=== PATIENT | male | born 1930 | race Two or more races ===

== ENCOUNTER 2018-05-17 14:36 | Inpatient (IN) | payer MEDICARE, MEDICAID ==
[~2018-05-17] VITALS: Ht 175.3 cm; Wt 78.0 kg
[~2018-05-17 14:36] MED LIST: ATOR40TA PO; BENA40TA8 PO; CHOL20004 PO; CLOP75TA33 PO; FURO40TA5 PO; GLIM4TAB3 PO; LORA1TAB PO; MECL-102 PO; METO25TA6 PO; TAMS0.4C34 PO
--- NOTE | 2018-05-17 16:00 | NUR ---
Admitted from [facility] per [facility] accompanied by ambulance staff. With pain upon movement over left hip. Not in any form of distress. Sating well on room air, no SOB or chest pains noted. No S/S of hypoglycemia. Informed Dr. Galloway of admission. Oriented to unit and equipment. Routine admission care done.
[2018-05-17] MEDS ORDERED: Z GUARD REMEDY PASTE 57 GM TUBE TOP PRN (18:00)
[2018-05-17] MEDS ORDERED: HYDR-4077 PO (18:13)
[2018-05-17] MEDS ORDERED: GLIM2TAB2 PO (18:13)
[2018-05-17] MEDS ORDERED: TRAV5DRO EACHEYE (18:13)
[2018-05-17] MEDS ORDERED: PANT40TA2 PO (18:13)
[2018-05-17] MEDS ORDERED: ACET-2154 PO (18:13)
[2018-05-17] MEDS ORDERED: CHOL100043 PO (18:13)
[2018-05-17] MEDS ORDERED: CLOP75TA33 PO (18:13)
[2018-05-17] MEDS ORDERED: METF-440 PO ×2 (18:13→20:19)
[2018-05-17] MEDS ORDERED: ENOX40DI SQ (18:13)
[2018-05-17] MEDS ORDERED: [UNRECOGNIZED DRUG - CODE] OP (18:13)
[2018-05-17] MEDS ORDERED: HYDR-3326 PO (18:13)
[2018-05-17] MEDS ORDERED: MAG355OR18 PO (18:14)
[2018-05-17] MEDS ORDERED: INSULIN REGULAR, HUMAN 300 UNIT/3 ML VIAL SQ PRN (18:30)
[2018-05-17] MEDS ORDERED: DEXTROSE 50% 50 ML DISP.SYRIN IV PRN ×2 (18:30→18:45)
--- NOTE | 2018-05-17 18:47 | NUR ---
Dayana Khan informed of admission and requested medication reconciliation.
[2018-05-17] MEDS ORDERED: GLIMEPIRIDE 4 MG TABLET PO SCH (19:00)
--- NOTE | 2018-05-17 19:25 | NUR ---
SBAR RECEIVED FROM DAY SHIFT NURSE. PATIENT ALERT AND ORIENTED X 4. NO C/O OF PAIN UPON ASSESSMENT. PATIENT APPEARS TO BE ANXIOUS ABOUT BLOOD SUGAR LEVELS. PLACED ON 0.5 L OF O2. BS TAKEN AND FOUND TO >200. WILL GIVE INSULIN WHEN MEDICATION IS RECONCILED. CALL LIGHT AND FREQUENTLY USED ITEMS WITHIN REACH. WILL CONTINUE TO MONITOR.
[2018-05-17 19:55] VITALS: BP 113/42
[2018-05-17] MEDS ORDERED: BENA20TA9 PO (20:14)
[2018-05-17] MEDS ORDERED: FURO-151 PO (20:15)
[2018-05-17] MEDS ORDERED: METF500S7 PO (20:17)
[2018-05-17] MEDS: LATANOPROST OPHT DROP 2.5 ML BOTTLE EACHEYE SCH (20:35)
[2018-05-17] MEDS: ACETAMINOPHEN 325 MG TABLET PO PRN (20:35)
[2018-05-17] MEDS: TAMSULOSIN HCL 0.4 MG CAP.SR.24H PO SCH (20:35)
[2018-05-17] MEDS: ATORVASTATIN 40 MG TABLET PO SCH (20:35)
[2018-05-17] MEDS: SODIUM CHLORIDE 5% EACHEYE SCH ×2 (20:35→20:44)
[2018-05-17] MEDS: BLOOD SUGAR DIAGNOSTIC 1 EACH STRIP VI SCH (20:36)
[2018-05-17] MEDS: INSULIN REGULAR, HUMAN 300 UNIT/3 ML VIAL SQ PRN (20:42)
[2018-05-17] MEDS ORDERED: TRAVOPROST 0.004% OPHT DROP 2.5 ML BOTTLE EACHEYE SCH (21:00)
[2018-05-17] MEDS ORDERED: BLOOD SUGAR DIAGNOSTIC 1 EACH STRIP VI SCH (21:00)
[2018-05-17] MEDS: hydrALAZINE HCL 50 MG TABLET PO SCH (21:13)
[2018-05-18 05:13] VITALS: BP 106/43
[2018-05-18] MEDS: hydrALAZINE HCL 50 MG TABLET PO SCH ×3 (06:00→21:13)
[2018-05-18] MEDS: PANTOPRAZOLE SODIUM 40 MG TABLET.DR PO SCH (06:39)
[2018-05-18] MEDS: BLOOD SUGAR DIAGNOSTIC 1 EACH STRIP VI SCH ×4 (06:39→21:14)
--- NOTE | 2018-05-18 06:51 | NUR ---
PATIENT SLEPT WELL DURING SHIFT. ALL DUE MEDICATIONS GIVEN-TOLERATED WELL. CALL LIGHT UTILIZED FOR BATHROOM NEEDS. PATIENT BECOME EASILY AGITATED AND ASKS MANY QUESTIONS ABOUT HIS MEDICATION ORDERS. PATIENT SIDE RAILS UP BILATERALLY FOR SAFETY. CALL LIGHT AND FREQUENTLY USED ITEMS WITHIN REACH. WILL ENDORSE TO ONCOMING SHIFT ACCORDINGLY.
[2018-05-18 08:00] VITALS: BP 124/48
[2018-05-18] MEDS ORDERED: METFORMIN HCL 500 MG TABLET PO SCH (08:00)
[2018-05-18] MEDS ORDERED: CLOPIDOGREL 75 MG TABLET PO SCH (09:00)
[2018-05-18] MEDS ORDERED: CHOLECALCIFEROL 1,000 UNIT TABLET PO SCH (09:00)
[2018-05-18] MEDS ORDERED: FUROSEMIDE 40 MG TABLET PO SCH (09:00)
[2018-05-18] MEDS ORDERED: BENAZEPRIL HCL 20 MG TABLET PO SCH ×2 (09:00)
[2018-05-18] MEDS ORDERED: ENOXAPARIN SODIUM 40 MG/0.4 ML DISP.SYRIN SQ SCH (09:00)
[2018-05-18] MEDS: GLIMEPIRIDE 2 MG TABLET PO SCH ×2 (09:08→11:54)
[2018-05-18] MEDS: METFORMIN HCL 500 MG TABLET PO SCH ×2 (09:09→11:54)
[2018-05-18] MEDS: SODIUM CHLORIDE 5% EACHEYE SCH ×4 (09:10→21:12)
[2018-05-18] MEDS: FUROSEMIDE 40 MG TABLET PO SCH (09:12)
[2018-05-18] MEDS: CLOPIDOGREL 75 MG TABLET PO SCH (09:14)
[2018-05-18] MEDS: CHOLECALCIFEROL 1,000 UNIT TABLET PO SCH (09:15)
[2018-05-18] MEDS: INSULIN REGULAR, HUMAN 300 UNIT/3 ML VIAL SQ PRN ×4 (09:26→21:12)
[2018-05-18 16:00] VITALS: BP 117/43
[2018-05-18 20:08] VITALS: BP 127/46
--- NOTE | 2018-05-18 20:24 | NUR ---
REPORT RECEIVED FROM DAY SHIFT NURSE. PATIENT ALERT AND ORIENTED X 3-4. IRISH SPEAKING. ASSISTED WITH EVENING ADLS AND BLADDER RELIEF. C/O OF HEADACHE DUE TO WHAT PATIENT BELIEVED TO BE HIS "HIGH BLOOD SUGAR". BLOOD SUGAR TAKEN AND FOUND TO BE 153. NO C/O SOB UPON ASSESSMENT. CALL LIGHT AND FREQUENTLY USED ITEMS WITHIN REACH. WILL CONTINUE TO MONITOR.
[2018-05-18] MEDS: TAMSULOSIN HCL 0.4 MG CAP.SR.24H PO SCH (21:13)
[2018-05-18] MEDS: LATANOPROST OPHT DROP 2.5 ML BOTTLE EACHEYE SCH (21:13)
[2018-05-18] MEDS: BENAZEPRIL HCL 20 MG TABLET PO SCH (21:14)
[2018-05-18] MEDS: ATORVASTATIN 40 MG TABLET PO SCH (21:14)
[2018-05-19 05:12] VITALS: BP 139/46
[2018-05-19] MEDS: hydrALAZINE HCL 50 MG TABLET PO SCH ×3 (06:21→21:19)
[2018-05-19] MEDS: PANTOPRAZOLE SODIUM 40 MG TABLET.DR PO SCH (06:31)
[2018-05-19] MEDS: BLOOD SUGAR DIAGNOSTIC 1 EACH STRIP VI SCH ×4 (06:32→20:47)
--- NOTE | 2018-05-19 06:49 | NUR ---
PATIENT SLEPT WELL THROUGHOUT THE NIGHT. ALL DUE MEDICATIONS GIVEN-TOLERATED WELL. PATIENT REQUESTED URINAL SEVERAL TIMES DURING THE NIGHT. C/O WHEN MEDICATIONS ARE DUE. STATING THAT HE "DOESN'T TAKE THEM THIS EARLY AT HOME". INFORMED THAT THE DOCTOR PRESCRIBED HIM TO TAKE HIS MEDICATIONS AT A SPECIFIC TIME OR PURPOSE, BUT PATIENT STILL WOULD LIKE THE TIME TO BE CHANGED TO CLOSER TO WHEN HE USUALLY TAKES THEM AT HOME. CALL LIGHT AND FREQUENTLY USED ITEMS WITHIN REACH. WILL ENDORSE TO ONCOMING SHIFT ACCORDINGLY.
[2018-05-19 07:27] LABS: BASOPHILS % (AUTO) 0.3 % (0.0-2.0); EOSINOPHILS # (AUTO) 0.3 K/uL (0.0-0.7); EOSINOPHILS % (AUTO) 5.8 % (0.0-7.0); HEMATOCRIT 23.9 % (36.7-47.1); HEMOGLOBIN 8.3 g/dL (12.5-16.3); LYMPHOCYTES # (AUTO) 1.2 K/uL (20.0-40.0); LYMPHOCYTES % (AUTO) 22.3 % (20.5-51.5); MEAN CORPUSCULAR HEMOGLOBIN 33.2 uug (23.8-33.4); MEAN CORPUSCULAR HGB CONC 35 g/dL (32.5-36.3); MEAN CORPUSCULAR VOLUME 95.6 fL (73.0-96.2); MONOCYTES # (AUTO) 0.5 K/uL (2.0-10.0); MONOCYTES % (AUTO) 10.2 % (0.0-11.0); NEUTROPHILS # (AUTO) 3.3 K/uL (1.8-8.9); NEUTROPHILS % (AUTO) 61.4 % (38.5-71.5); PLATELET COUNT (AUTO) 148 K/uL (152-348); WHITE BLOOD COUNT (AUTO) 5.4 K/uL (3.6-10.2)
[2018-05-19 08:00] VITALS: BP 102/39
[2018-05-19 08:02] LABS: ALANINE AMINOTRANSFERASE 31 U/L (16-63); ALKALINE PHOSPHATASE 30 U/L (50-136); ASPARTATE AMINOTRANSFERASE 28 U/L (15-37); BILIRUBIN,TOTAL 1.2 mg/dL (0.2-1.0); CARBON DIOXIDE 32 mmol/L (21-32); CHLORIDE 103 mmol/L (98-107); CHOLESTEROL 89 mg/dL (<200); CREATININE 1.1 mg/dL (0.6-1.3); GLUCOSE 89 mg/dL (74-106); HDL CHOLESTEROL 37 mg/dL (40-60); MAGNESIUM 1.7 mg/dL (1.8-2.4); POTASSIUM 3.2 mmol/L (3.5-5.1); TOTAL PROTEIN, SERUM 6.1 g/dL (6.4-8.2); TRIGLYCERIDES 80 MG/DL (30-150); UREA NITROGEN, BLOOD 21 mg/dL (7-18)
[2018-05-19] MEDS: METFORMIN HCL 500 MG TABLET PO SCH ×2 (08:43→11:53)
[2018-05-19] MEDS: FUROSEMIDE 40 MG TABLET PO SCH (08:43)
[2018-05-19] MEDS: CHOLECALCIFEROL 1,000 UNIT TABLET PO SCH (08:43)
[2018-05-19] MEDS: CLOPIDOGREL 75 MG TABLET PO SCH (08:44)
[2018-05-19] MEDS: GLIMEPIRIDE 2 MG TABLET PO SCH ×2 (08:44→11:53)
[2018-05-19] MEDS: BENAZEPRIL HCL 20 MG TABLET PO SCH ×2 (08:46→20:45)
[2018-05-19] MEDS: SODIUM CHLORIDE 5% EACHEYE SCH ×4 (08:47→20:44)
[2018-05-19] MEDS: INSULIN REGULAR, HUMAN 300 UNIT/3 ML VIAL SQ PRN ×3 (08:56→16:22)
[2018-05-19] MEDS ORDERED: ENOXAPARIN SODIUM 40 MG/0.4 ML DISP.SYRIN SQ SCH ×2 (09:00)
[2018-05-19] MEDS: TRAMADOL HCL 50 MG TABLET PO PRN ×2 (09:20→16:49)
--- NOTE | 2018-05-19 09:44 | NUR ---
Received pt. on bed, comfortable in no distress. A/OX3 and able to make his needs known. Denies CP or SOB, on 2LPM via NC tolerating well with 97% SpO2. All due medications administered as ordered and tolerated well. lt. hip covered C/D/I dressing. No s/sx of hypo/hyperglycemia. Lovenox dose noted with discrepancy, pharmacy to clarify with MD. All pt. needs attended and met promptly. Safety measures in place. Call light and all frequently used items within pt. reach.
[2018-05-19] MEDS: ENOXAPARIN SODIUM 40 MG/0.4 ML DISP.SYRIN SQ SCH (10:49)
[2018-05-19] MEDS ORDERED: POTASSIUM CHLORIDE 20 MEQ TAB.PRT.SR PO ONE (12:00)
[2018-05-19] MEDS ORDERED: MAGNESIUM OXIDE 400 MG TABLET PO ONE (12:00)
[2018-05-19] MEDS: MECLIZINE HCL 25 MG TABLET PO PRN (12:04)
[2018-05-19 12:27] LABS: IRON, SERUM 22 ug/dL (50-175)
[2018-05-19 16:24] VITALS: BP 101/43
--- NOTE | 2018-05-19 19:34 | NUR ---
End of shift note: All due medications administered as ordered and tolerated well. No sign of acute distress or SOB was noted. Kept pt clean and dry throughout this shift. Safety measures maintained. All needs attended and met promptly. Bed in low position, brake and alarm on, side rails up x2 as an enabler. Call light and all frequently used items within pt. reach. Will endorse to next shift accordingly.
--- NOTE | 2018-05-19 19:45 | NUR ---
PATIENT ALERT AND ORIENTED X 4. NO C/O OF PAIN UPON ASSESSMENT. SPOKE TO SON ON THE PHONE ABOUT PATIENTS PHYSICAL THERAPY ACTIVITY. SON IS INSISTENT THAT PATENT ALWAYS BE GIVEN PAIN MEDICATION EXACTLY 1 HOUR PRIOR TO BEFORE PATIENT HAS PHYSICAL THERAPY. EVENING REQUIRED NO COVERAGE AND BP MEDS WILL BE HELD FOR LOW BLOOD PRESSURE. CALL LIGHT AND FREQUENTLY USED ITEMS WITHIN REACH. WILL CONTINUE TO MONITOR.
[2018-05-19] MEDS: LATANOPROST OPHT DROP 2.5 ML BOTTLE EACHEYE SCH (20:44)
[2018-05-19] MEDS: TAMSULOSIN HCL 0.4 MG CAP.SR.24H PO SCH (20:45)
[2018-05-19] MEDS: ATORVASTATIN 10 MG TABLET PO SCH (20:45)
[2018-05-19 20:52] VITALS: BP 102/42
[2018-05-20] MEDS: hydrALAZINE HCL 50 MG TABLET PO SCH ×3 (05:45→21:34)
[2018-05-20 06:09] VITALS: BP 104/46
[2018-05-20] MEDS: BLOOD SUGAR DIAGNOSTIC 1 EACH STRIP VI SCH ×4 (06:36→20:41)
[2018-05-20] MEDS: PANTOPRAZOLE SODIUM 40 MG TABLET.DR PO SCH (06:36)
--- NOTE | 2018-05-20 07:03 | NUR ---
PATIENT SLEPT ON AND OFF DURING THE NIGHT. ALL DUE MEDICATIONS GIVEN-TOLERATED WELL. 0600 HYDRALAZINE HELD DUE TO LOW BLOOD PRESSURE. MORNING BLOOD SUGAR TAKEN X3 DUE TO LOW BS. FIRST CHECK WAS 50, SECOND WAS 59, THIRD WAS 74. CRACKERS AND JUICE GIVEN TO RAISE BLOOD SUGAR. CALL LIGHT AND FREQUENTLY USED ITEMS WITHIN REACH. WILL ENDORSE TO ONCOMING SHIFT ACCORDINGLY.
--- NOTE | 2018-05-20 08:00 | NUR ---
Received patient awake, alert x3. Not in any form of distress. No chest pains or SOB noted, no S/S of hypoglycemia. With original surgical dressing in place dry and intact over left hip. Abduction pillow inplace. With tolerable pain over left hip, only with pain upon movement.
[2018-05-20 08:20] VITALS: BP 97/45
[2018-05-20] MEDS: CHOLECALCIFEROL 1,000 UNIT TABLET PO SCH (08:22)
[2018-05-20] MEDS: GLIMEPIRIDE 2 MG TABLET PO SCH ×2 (08:22→12:11)
[2018-05-20] MEDS: CLOPIDOGREL 75 MG TABLET PO SCH (08:22)
[2018-05-20] MEDS: METFORMIN HCL 500 MG TABLET PO SCH ×2 (08:24→12:11)
[2018-05-20] MEDS: TRAMADOL HCL 50 MG TABLET PO PRN (08:24)
[2018-05-20] MEDS: ENOXAPARIN SODIUM 40 MG/0.4 ML DISP.SYRIN SQ SCH (08:27)
[2018-05-20] MEDS: SODIUM CHLORIDE 5% EACHEYE SCH ×4 (08:28→20:38)
[2018-05-20] MEDS: BENAZEPRIL HCL 20 MG TABLET PO SCH ×2 (08:35→20:38)
[2018-05-20] MEDS: FUROSEMIDE 40 MG TABLET PO SCH (08:35)
--- NOTE | 2018-05-20 09:51 | NUR ---
Patient complained of dizziness upon standing up with therapy. Patient did not ambulate at this time. PRN Tramadol given before therapy.
[2018-05-20] MEDS: INSULIN REGULAR, HUMAN 300 UNIT/3 ML VIAL SQ PRN ×2 (12:10→20:47)
--- NOTE | 2018-05-20 12:14 | NUR ---
WOUND CARE CONSULT: PT PRESENTS WITH SURGICAL DRESSING TO LEFT HIP AND UNEVEN PIGMENTATION ON FACE, BACK AND BUTTOCKS, PRESENT ON ADMISSION. PT IS CONTINENT AT THIS TIME. RECOMMENDATIONS MADE FOR SKIN PROTECTION. DISCUSSED WITH NURSING STAFF. WILL SEE PRN. CURRENT NILE SCORE IS 18. MD IN AGREEMENT WITH PLAN OF CARE. Addendum: 05/20/18 at 1216 by VERONIKA CARBALLO RN Amended: Links added.
[2018-05-20 13:10] VITALS: BP_SYST 127; BP_SYST 98; BP_DIAS 44; BP_DIAS 51
[2018-05-20 13:34] VITALS: BP_SYST 101; BP_SYST 125; BP_SYST 89; BP_DIAS 51; BP_DIAS 57; BP_DIAS 60
[2018-05-20] MEDS: ACETAMINOPHEN 325 MG TABLET PO PRN ×2 (15:03→21:35)
--- NOTE | 2018-05-20 16:14 | NUR ---
INDIVIDUALIZED OVERALL PLAN OF CARE
[2018-05-20 16:22] VITALS: BP 94/41
--- NOTE | 2018-05-20 16:41 | NUR ---
Informed Dr Higgins of orthostatics taken and patient being dizzy during therapy, ordered NS at 80 cc/hr for 24 hrs
--- NOTE | 2018-05-20 17:00 | NUR ---
Blood sugar of 57, patient asymptomatic alert, awake not in any form of distress. Offered orange juice but refused. Offered chocolate pudding and crackers instead.
[2018-05-20] MEDS: IV NS 1000 ML 1,000 ML IV SCH (18:14)
--- NOTE | 2018-05-20 18:30 | NUR ---
Blood sugar re-checked still at 56. Dextrose 50%50% given PRN. Patient asymptomatic, alert, awake x3 not in any form of distress.
--- NOTE | 2018-05-20 19:40 | NUR ---
Patient received in bed while yelling and screaming and asking for insulin. Very angry and verbally aggressive toward nurses. tried to educate him about BS and insulin, but not listening. BS checked 135. Convinced him that his BS will be checked again and will be covered with insulin based on sliding scale. No acute distress or SOB was noted. On room air. On IV fluid NS 80 ml/hr. IV access on the left FA, G 22, patent, no sign of inflammation. No complain of pain at this time. Patient assessed. Safety measures maintained, Fall precaution observed, Bed in low position, brake and alarm on, side rails up x2 for safety. Call light and personal belongings within reach. Continue to monitor.
[2018-05-20] MEDS: LATANOPROST OPHT DROP 2.5 ML BOTTLE EACHEYE SCH (20:36)
[2018-05-20] MEDS: ATORVASTATIN 10 MG TABLET PO SCH (20:38)
[2018-05-20] MEDS: TAMSULOSIN HCL 0.4 MG CAP.SR.24H PO SCH (20:38)
[2018-05-20 20:42] VITALS: BP 135/65
--- NOTE | 2018-05-20 22:10 | NUR ---
Hydralazine 50 mg tab was held because of low BP: 101/51, HR: 63. Continue to monitor.
[2018-05-21] MEDS: hydrALAZINE HCL 50 MG TABLET PO SCH ×3 (05:07→22:00)
[2018-05-21 05:10] VITALS: BP 104/40
--- NOTE | 2018-05-21 05:12 | NUR ---
Hydralazine 50 mg tab was held because of low BP: 104/40, HR: 62. Continue to monitor.
[2018-05-21] MEDS: IV NS 1000 ML 1,000 ML IV SCH ×2 (05:26→17:28)
[2018-05-21] MEDS: MAGNESIUM HYDROXIDE 30 ML LIQUID UDC PO PRN ×2 (05:31→16:17)
[2018-05-21] MEDS: PANTOPRAZOLE SODIUM 40 MG TABLET.DR PO SCH (06:30)
[2018-05-21] MEDS: BLOOD SUGAR DIAGNOSTIC 1 EACH STRIP VI SCH ×4 (06:50→21:01)
--- NOTE | 2018-05-21 06:55 | NUR ---
Patient BS was 65 @0630, but patient refused to have apple juice or something sweet. Stated, "It' s normal to me". education provided, still refused. Mentioned, "I am diabetic for 35 years, don't worry about me, sugar makes me blind". Educated him about the risks of hypoglycemia. Still refused to have something sweet. Continue to monitor and will endorse to the day shift nurse accordingly.
[2018-05-21 08:00] VITALS: BP 101/48
[2018-05-21] MEDS: CHOLECALCIFEROL 1,000 UNIT TABLET PO SCH (08:59)
[2018-05-21] MEDS: CLOPIDOGREL 75 MG TABLET PO SCH (08:59)
[2018-05-21] MEDS: METFORMIN HCL 500 MG TABLET PO SCH ×2 (08:59→11:45)
[2018-05-21] MEDS: FUROSEMIDE 40 MG TABLET PO SCH (08:59)
[2018-05-21] MEDS: SODIUM CHLORIDE 5% EACHEYE SCH ×4 (09:00→21:03)
[2018-05-21] MEDS: GLIMEPIRIDE 2 MG TABLET PO SCH ×2 (09:00→11:45)
[2018-05-21] MEDS: BENAZEPRIL HCL 20 MG TABLET PO SCH ×2 (09:00→21:00)
[2018-05-21] MEDS: ENOXAPARIN SODIUM 40 MG/0.4 ML DISP.SYRIN SQ SCH (09:03)
[2018-05-21] MEDS: TRAMADOL HCL 50 MG TABLET PO PRN ×2 (09:12→16:17)
--- NOTE | 2018-05-21 09:34 | NUR ---
Received pt. on bed, comfortable in no distress. A/OX3 and able to make his needs known. Denies CP or SOB, on 2LPM via NC tolerating well with 99% SpO2. All due medications administered as ordered and tolerated well. BP meds held for decreased BP (101/48). On IV fluids 0.9% NS for low bp @ 80ML/HR with no s/sx of fluid overload. No s/sx of hypo/hyperglycemia. LT. hip dressing C/D/I. All pt. needs attended and met promptly. Safety measures in place. Call light and all frequently used items within pt. reach.
[2018-05-21] MEDS: INSULIN REGULAR, HUMAN 300 UNIT/3 ML VIAL SQ PRN ×2 (11:44→16:18)
[2018-05-21 16:00] VITALS: BP 117/44
--- NOTE | 2018-05-21 18:34 | NUR ---
End of shift note: No significant change during this shift. All due medications administered as ordered and tolerated well. No sign of acute distress or SOB was noted. LFA PIV patent and intact, no s/sx of iv complication noted. Kept pt clean and dry throughout this shift. Safety measures maintained. All needs attended and met promptly. Bed in low position, brake on, side rails up x2 as an enabler. Call light and all frequently used items within pt. reach. Will endorse to next shift accordingly
[2018-05-21 20:59] VITALS: BP 114/44
[2018-05-21] MEDS: LATANOPROST OPHT DROP 2.5 ML BOTTLE EACHEYE SCH (21:04)
[2018-05-21] MEDS: TAMSULOSIN HCL 0.4 MG CAP.SR.24H PO SCH (21:05)
[2018-05-21] MEDS: ATORVASTATIN 10 MG TABLET PO SCH (21:05)
--- NOTE | 2018-05-21 21:50 | NUR ---
Received pt in bed. AAO x3. No acute distress noted. No c/o pain or discomfort. Pt requested for blood sugar to be checked early. Refused Lotensin for BP 114/44. Risks and benefits explained. Notified Dr. Garcia regarding fluctuation of blood sugar during rounds. Safety measures maintained. Call light and personal belongings within reach. Will continue to monitor.
--- NOTE | 2018-05-21 21:54 | NUR ---
Pt refused routine Apresoline for BP 123/47, HR 68. Pt stated that his BP tends to go down a lot. Risks and benefits explained, still refused. Will continue to monitor.
[2018-05-21 21:55] VITALS: BP 123/47
[2018-05-22 04:54] VITALS: BP 115/50
[2018-05-22] MEDS: hydrALAZINE HCL 50 MG TABLET PO SCH ×2 (06:00→14:00)
[2018-05-22] MEDS: PANTOPRAZOLE SODIUM 40 MG TABLET.DR PO SCH (06:44)
[2018-05-22] MEDS: BLOOD SUGAR DIAGNOSTIC 1 EACH STRIP VI SCH ×4 (06:49→20:37)
[2018-05-22 07:26] LABS: BASOPHILS % (AUTO) 0.4 % (0.0-2.0); EOSINOPHILS # (AUTO) 0.5 K/uL (0.0-0.7); HEMATOCRIT 22.2 % (36.7-47.1); HEMOGLOBIN 7.6 g/dL (12.5-16.3); LYMPHOCYTES # (AUTO) 1.2 K/uL (20.0-40.0); LYMPHOCYTES % (AUTO) 20.5 % (20.5-51.5); MEAN CORPUSCULAR HEMOGLOBIN 32.9 uug (23.8-33.4); MEAN CORPUSCULAR HGB CONC 34 g/dL (32.5-36.3); MEAN CORPUSCULAR VOLUME 96.2 fL (73.0-96.2); MONOCYTES # (AUTO) 0.6 K/uL (2.0-10.0); MONOCYTES % (AUTO) 9.8 % (0.0-11.0); NEUTROPHILS # (AUTO) 3.5 K/uL (1.8-8.9); NEUTROPHILS % (AUTO) 61.3 % (38.5-71.5); PLATELET COUNT (AUTO) 189 K/uL (152-348); WHITE BLOOD COUNT (AUTO) 5.7 K/uL (3.6-10.2)
[2018-05-22 07:31] LABS: RED BLOOD CELL COUNT(AUTO) 2.31 MIL/uL (4.06-5.63)
[2018-05-22 08:00] VITALS: BP 110/44
[2018-05-22 08:06] LABS: ALANINE AMINOTRANSFERASE 31 U/L (16-63); ALKALINE PHOSPHATASE 34 U/L (50-136); ASPARTATE AMINOTRANSFERASE 26 U/L (15-37); CARBON DIOXIDE 33 mmol/L (21-32); CHLORIDE 102 mmol/L (98-107); CHOLESTEROL 86 mg/dL (<200); CREATININE 1.1 mg/dL (0.6-1.3); GLUCOSE 99 mg/dL (74-106); HDL CHOLESTEROL 31 mg/dL (40-60); PHOSPHOROUS 2.8 mg/dL (2.5-4.9); POTASSIUM 3.7 mmol/L (3.5-5.1); TRIGLYCERIDES 72 MG/DL (30-150); UREA NITROGEN, BLOOD 20 mg/dL (7-18); URIC ACID 5.7 mg/dL (3.5-7.2)
[2018-05-22] MEDS: METFORMIN HCL 500 MG TABLET PO SCH ×2 (08:26→13:17)
[2018-05-22] MEDS: CHOLECALCIFEROL 1,000 UNIT TABLET PO SCH (08:26)
[2018-05-22] MEDS: FUROSEMIDE 40 MG TABLET PO SCH (08:26)
[2018-05-22] MEDS: GLIMEPIRIDE 2 MG TABLET PO SCH ×2 (08:26→13:17)
[2018-05-22] MEDS: CLOPIDOGREL 75 MG TABLET PO SCH (08:27)
[2018-05-22] MEDS: SODIUM CHLORIDE 5% EACHEYE SCH ×4 (08:27→20:31)
[2018-05-22] MEDS: ENOXAPARIN SODIUM 40 MG/0.4 ML DISP.SYRIN SQ SCH (08:31)
[2018-05-22] MEDS: BENAZEPRIL HCL 20 MG TABLET PO SCH (09:00)
[2018-05-22] MEDS: TRAMADOL HCL 50 MG TABLET PO PRN (09:05)
[2018-05-22 09:35] LABS: THYROID STIMULATING HORMONE 1.802 mIU/mL (0.358-3.740)
[2018-05-22] MEDS: INSULIN REGULAR, HUMAN 300 UNIT/3 ML VIAL SQ PRN ×2 (11:56→17:02)
[2018-05-22 16:00] VITALS: BP 129/45
--- NOTE | 2018-05-22 16:14 | NUR ---
SS assessment completed; see Social Service Assessment intervention for assessment details.
[2018-05-22] MEDS ORDERED: hydrALAZINE HCL 25 MG TABLET PO PRN (18:15)
--- NOTE | 2018-05-22 18:15 | NUR ---
Notified Dr. Garcia regarding patient's low diastolic BP and an episode of decreased BP 84/43 when stood up with PT then BP went up to 110/44 when she was back in bed. Also informed MD that BP medications due were held today because of low BP. Per MD he will put in orders
--- NOTE | 2018-05-22 19:15 | NUR ---
Awake during initial rounds. Denies pain/discomforts at this time. Kept needed items within easy reach. Safety measures maintained. Continue care as planned.
--- NOTE | 2018-05-22 19:36 | NUR ---
Received an order from Dr. Garcia to transfuse 1 unit PRBC. Order carried out. Endorsed accordingly to mold shifter nurse for continuity of care.
[2018-05-22 20:23] VITALS: BP 115/58
--- NOTE | 2018-05-22 20:28 | NUR ---
Patient refused lab draw and blood transfusion for tonight. Patient states " that can wait till tomorrow." Will endorse to Am nurse.
[2018-05-22] MEDS: TAMSULOSIN HCL 0.4 MG CAP.SR.24H PO SCH (20:31)
[2018-05-22] MEDS: LATANOPROST OPHT DROP 2.5 ML BOTTLE EACHEYE SCH (20:31)
[2018-05-22] MEDS: ATORVASTATIN 10 MG TABLET PO SCH (20:31)
--- NOTE | 2018-05-22 20:37 | NUR ---
BS 63 mg/dl. [place] juice was given and beg not to repeat the blood sugar check despite explaining the risk and benefits. Will monitor s/s of hypoglycemia.
--- NOTE | 2018-05-22 20:44 | NUR ---
HS snack provided.
--- NOTE | 2018-05-22 20:51 | NUR ---
Dr Garcia made aware about patient refusal fo blood draw for type n cross and blood transfusion for tonight stating "these can wait till tomorrow." Same thing with the low BS 63mg/dl. . Denies any s/s of hypoglycemia.
--- NOTE | 2018-05-22 21:17 | NUR ---
Urine specimen collected for UA and c/s and sent to lab.
[2018-05-22 21:39] LABS: *BILIRUBIN,URIN NEGATIVE (NEGATIVE); *CLARITY,URINE CLEAR (CLEAR); *COLOR,URINE YELLOW (YELLOW); *KETONES,URINE NEGATIVE (NEGATIVE); *UROBILINOGEN,URINE 0.2 E.U./dl (NORMAL); LEUKOCYTE ESTERASE ,URINE NEGATIVE (NEGATIVE); NITRITE, URINE NEGATIVE (NEGATIVE); PH,URINE 5.5 (5.0-8.0); UGLUCOSE NEGATIVE (NEGATIVE)
[2018-05-22 21:40] LABS: *BLOOD, URINE TRACE (NEGATIVE)
[2018-05-22 21:41] LABS: BACTERIA,URINE NONE SEEN /HPF (NONE SEEN); RBC,URINE 0-3 /HPF (0-3); SQUAMOUS EPITHELIAL CELL,UR FEW /HPF (NONE SEEN); WBC,URINE 0-3 /HPF (0-3)
[2018-05-23] VITALS (11 sets, daily range): BP systolic 102–138; BP diastolic 42–84
[2018-05-23] MEDS: PANTOPRAZOLE SODIUM 40 MG TABLET.DR PO SCH (06:49)
[2018-05-23] MEDS: BLOOD SUGAR DIAGNOSTIC 1 EACH STRIP VI SCH ×4 (06:50→20:18)
--- NOTE | 2018-05-23 06:57 | NUR ---
BS 69 mg/dl. Denies s/s of hypoglycemia, start eating chocolate at bedside, refused apple juice offered. Will monitor and endorse to oncoming shift.
[2018-05-23] MEDS: GLIMEPIRIDE 2 MG TABLET PO SCH ×2 (08:11→12:09)
[2018-05-23] MEDS: METFORMIN HCL 500 MG TABLET PO SCH ×2 (08:11→12:09)
[2018-05-23] MEDS: ENOXAPARIN SODIUM 40 MG/0.4 ML DISP.SYRIN SQ SCH (09:03)
[2018-05-23] MEDS: SODIUM CHLORIDE 5% EACHEYE SCH ×4 (09:08→20:14)
[2018-05-23] MEDS: CHOLECALCIFEROL 1,000 UNIT TABLET PO SCH (09:09)
[2018-05-23] MEDS: FUROSEMIDE 40 MG TABLET PO SCH (09:09)
[2018-05-23] MEDS: CLOPIDOGREL 75 MG TABLET PO SCH (09:09)
--- NOTE | 2018-05-23 09:45 | NUR ---
Patient signed consent for blood transfusion.
--- NOTE | 2018-05-23 10:04 | NUR ---
Blood transfusion started. Patient denies any pain or discomfort at this time. He remains alert, not in any form of acute distress. VS stable.
[2018-05-23] MEDS: INSULIN REGULAR, HUMAN 300 UNIT/3 ML VIAL SQ PRN (11:43)
--- NOTE | 2018-05-23 13:10 | NUR ---
Blood transfusion ended. Patient remains alert, oriented x 4, not in any form of distress. No noted signs or symptoms of blood transfusion reaction. Patient denies any discomfort. Vital signs remain stable. Assisted with his needs. Call light placed within reach.
--- NOTE | 2018-05-23 19:15 | NUR ---
Sleeping during initial rounds. Not in respiratory distress. HL on right wrist intact, no swelling/redness/infiltration noted. Safety measure and fall precaution maintained. Continue care as planned.
[2018-05-23] MEDS: ATORVASTATIN 10 MG TABLET PO SCH (20:14)
[2018-05-23] MEDS: TAMSULOSIN HCL 0.4 MG CAP.SR.24H PO SCH (20:14)
[2018-05-23] MEDS: LATANOPROST OPHT DROP 2.5 ML BOTTLE EACHEYE SCH (20:14)
[2018-05-24 06:10] VITALS: BP 124/58
[2018-05-24] MEDS: BLOOD SUGAR DIAGNOSTIC 1 EACH STRIP VI SCH ×4 (06:52→20:17)
[2018-05-24] MEDS: PANTOPRAZOLE SODIUM 40 MG TABLET.DR PO SCH (06:52)
[2018-05-24 07:23] LABS: ALANINE AMINOTRANSFERASE 31 U/L (16-63); ALKALINE PHOSPHATASE 39 U/L (50-136); ASPARTATE AMINOTRANSFERASE 29 U/L (15-37); BILIRUBIN,TOTAL 0.8 mg/dL (0.2-1.0); CARBON DIOXIDE 34 mmol/L (21-32); CHLORIDE 103 mmol/L (98-107); CREATININE 1.1 mg/dL (0.6-1.3); GLUCOSE 132 mg/dL (74-106); MAGNESIUM 1.9 mg/dL (1.8-2.4); PHOSPHOROUS 3.5 mg/dL (2.5-4.9); POTASSIUM 3.5 mmol/L (3.5-5.1); TOTAL PROTEIN, SERUM 6.5 g/dL (6.4-8.2); UREA NITROGEN, BLOOD 26 mg/dL (7-18)
[2018-05-24 07:30] LABS: BASOPHILS % (AUTO) 0.3 % (0.0-2.0); EOSINOPHILS # (AUTO) 0.7 K/uL (0.0-0.7); LYMPHOCYTES # (AUTO) 1.5 K/uL (20.0-40.0); MONOCYTES # (AUTO) 0.6 K/uL (2.0-10.0)
[2018-05-24 07:41] LABS: EOSINOPHILS % (AUTO) 11.1 % (0.0-7.0); LYMPHOCYTES % (AUTO) 24.6 % (20.5-51.5); MEAN CORPUSCULAR HEMOGLOBIN 32.2 uug (23.8-33.4); MEAN CORPUSCULAR HGB CONC 34 g/dL (32.5-36.3); MEAN CORPUSCULAR VOLUME 94.9 fL (73.0-96.2); MONOCYTES % (AUTO) 10.3 % (0.0-11.0); NEUTROPHILS # (AUTO) 3.3 K/uL (1.8-8.9); NEUTROPHILS % (AUTO) 53.7 % (38.5-71.5); WHITE BLOOD COUNT (AUTO) 6.2 K/uL (3.6-10.2)
[2018-05-24 07:43] LABS: HEMOGLOBIN 9.7 g/dL (12.5-16.3)
[2018-05-24 07:44] LABS: HEMATOCRIT 28.5 % (36.7-47.1); PLATELET COUNT (AUTO) 244 K/uL (152-348)
[2018-05-24] MEDS: GLIMEPIRIDE 2 MG TABLET PO SCH ×2 (08:07→11:56)
[2018-05-24 08:15] VITALS: BP 125/54
[2018-05-24] MEDS: CHOLECALCIFEROL 1,000 UNIT TABLET PO SCH (08:49)
[2018-05-24] MEDS: CLOPIDOGREL 75 MG TABLET PO SCH (08:50)
[2018-05-24] MEDS: TRAMADOL HCL 50 MG TABLET PO PRN (08:50)
[2018-05-24] MEDS: FUROSEMIDE 40 MG TABLET PO SCH (08:50)
[2018-05-24] MEDS: SODIUM CHLORIDE 5% EACHEYE SCH ×4 (08:51→20:18)
[2018-05-24] MEDS: ENOXAPARIN SODIUM 40 MG/0.4 ML DISP.SYRIN SQ SCH (08:56)
[2018-05-24] MEDS: METFORMIN HCL 500 MG TABLET PO SCH ×2 (11:56→16:53)
[2018-05-24] MEDS: INSULIN REGULAR, HUMAN 300 UNIT/3 ML VIAL SQ PRN ×3 (12:02→20:23)
--- NOTE | 2018-05-24 15:35 | NUR ---
INTERDISCIPLINARY TEAM CONFERENCE
[2018-05-24 16:48] LABS: *OCCULT BLOOD STOOL NEGATIVE (NEGATIVE)
[2018-05-24 17:50] VITALS: BP 135/51
--- NOTE | 2018-05-24 19:15 | NUR ---
Awake, watching TV at this time. Denies pain/discomforts. Safety measure and fall precaution maintained. Continue care as planned.
[2018-05-24] MEDS: TAMSULOSIN HCL 0.4 MG CAP.SR.24H PO SCH (20:18)
[2018-05-24] MEDS: LATANOPROST OPHT DROP 2.5 ML BOTTLE EACHEYE SCH (20:18)
[2018-05-24] MEDS: ATORVASTATIN 10 MG TABLET PO SCH (20:18)
[2018-05-24] MEDS: ACETAMINOPHEN 325 MG TABLET PO PRN (22:41)
--- NOTE | 2018-05-24 22:42 | NUR ---
Complaining of headache, Tylenol given as ordered and needed. Will monitor.
[2018-05-24 22:43] VITALS: BP 123/57
--- NOTE | 2018-05-25 01:03 | NUR ---
Still complaining of headache, unable to sleep, discomforts but denies pain. BP 130/60. BS checked 51mg/dl. Refused any medication like D50 and orange juice. Offered snacks but he prefers bertin crackers and apple sauce. Will continue to monitor.
[2018-05-25] MEDS: PANTOPRAZOLE SODIUM 40 MG TABLET.DR PO SCH (06:34)
[2018-05-25] MEDS: BLOOD SUGAR DIAGNOSTIC 1 EACH STRIP VI SCH ×4 (06:37→20:45)
[2018-05-25 07:08] VITALS: BP 130/51
[2018-05-25 07:15] VITALS: BP 127/83
[2018-05-25] MEDS: SODIUM CHLORIDE 5% EACHEYE SCH ×4 (08:21→20:45)
[2018-05-25] MEDS: FUROSEMIDE 40 MG TABLET PO SCH (08:21)
[2018-05-25] MEDS: GLIMEPIRIDE 2 MG TABLET PO SCH ×2 (08:21→11:49)
[2018-05-25] MEDS: METFORMIN HCL 500 MG TABLET PO SCH ×2 (08:21→17:23)
[2018-05-25] MEDS: CHOLECALCIFEROL 1,000 UNIT TABLET PO SCH (08:21)
[2018-05-25] MEDS: CLOPIDOGREL 75 MG TABLET PO SCH (08:21)
[2018-05-25] MEDS: ENOXAPARIN SODIUM 40 MG/0.4 ML DISP.SYRIN SQ SCH (08:27)
[2018-05-25] MEDS: TRAMADOL HCL 50 MG TABLET PO PRN (08:29)
[2018-05-25] MEDS: INSULIN REGULAR, HUMAN 300 UNIT/3 ML VIAL SQ PRN (11:33)
[2018-05-25 16:12] VITALS: BP 114/47
--- NOTE | 2018-05-25 16:32 | NUR ---
Patient continue on pain management for left hip fracture prior to therapy with good effect. Tramadol given this morning. Continue therapy for ambulation and daily activities. not in distress. will continue monitor
--- NOTE | 2018-05-25 20:04 | NUR ---
resting in bed upon initial rounds. aaox3-4 needs attended. no acute distress noted. continent of bowel and bladder. voiding freely. BM noted this shift. VSS. compliant with care. will monitor patient. needs attended. fall precautions maintained. complained of headache, tylenol given.will monitor for relief.
[2018-05-25 20:15] VITALS: BP 116/45
[2018-05-25] MEDS: ATORVASTATIN 10 MG TABLET PO SCH (20:37)
[2018-05-25] MEDS: TAMSULOSIN HCL 0.4 MG CAP.SR.24H PO SCH (20:37)
[2018-05-25] MEDS: LATANOPROST OPHT DROP 2.5 ML BOTTLE EACHEYE SCH (20:38)
[2018-05-25] MEDS: ACETAMINOPHEN 325 MG TABLET PO PRN (20:41)
--- NOTE | 2018-05-25 20:53 | NUR ---
tolerated po meds well. accucheck taken it was 81. snacks given, bertin crackers and 1/2 of his tuna sandwich eaten. instructed patient to call if he thinks his sugar is low, will monitor as well the blood sugar and also the patient.
[2018-05-26 04:54] VITALS: BP 126/54
--- NOTE | 2018-05-26 06:06 | NUR ---
@ 0230 am patient called and thinks his sugar is low. Blood sugar checked, it was 57. Pudding and crackers given. says he felt better. will recheck blood sugar again am. slept well after that. will monitor patient.
[2018-05-26] MEDS: BLOOD SUGAR DIAGNOSTIC 1 EACH STRIP VI SCH ×4 (06:32→20:13)
[2018-05-26] MEDS: PANTOPRAZOLE SODIUM 40 MG TABLET.DR PO SCH (06:33)
--- NOTE | 2018-05-26 06:35 | NUR ---
blood sugar 105. Patient denies any headache nor any dizziness. will monitor patient.
[2018-05-26] MEDS: GLIMEPIRIDE 2 MG TABLET PO SCH ×2 (08:16→11:49)
[2018-05-26] MEDS: METFORMIN HCL 500 MG TABLET PO SCH ×2 (08:16→12:20)
[2018-05-26] MEDS: CLOPIDOGREL 75 MG TABLET PO SCH (08:16)
[2018-05-26] MEDS: FUROSEMIDE 40 MG TABLET PO SCH (08:16)
[2018-05-26] MEDS: SODIUM CHLORIDE 5% EACHEYE SCH ×4 (08:16→20:08)
[2018-05-26] MEDS: CHOLECALCIFEROL 1,000 UNIT TABLET PO SCH (08:16)
[2018-05-26] MEDS: ENOXAPARIN SODIUM 40 MG/0.4 ML DISP.SYRIN SQ SCH (08:23)
[2018-05-26] MEDS: INSULIN REGULAR, HUMAN 300 UNIT/3 ML VIAL SQ PRN ×3 (08:23→15:46)
[2018-05-26 08:36] VITALS: BP 111/63
--- NOTE | 2018-05-26 09:50 | NUR ---
Received pt. on bed, comfortable in no distress. A/OX4 and able to make his needs known. Denies CP or SOB, on RA tolerating well with 95% SpO2. All due medications administered as ordered and tolerated well. LT. hip covered C/D/I dressing. No s/sx of hypo/hyperglycemia, last BS: 105 mg/dl this AM, no coverage given. No s/sx of bleeding. All pt. needs attended and met promptly. Safety measures in place. Call light and all frequently used items within pt. reach.
[2018-05-26] MEDS: SULFAMETH/TRIMETH 800/160 MG TABLET PO SCH ×2 (09:54→20:08)
[2018-05-26] MEDS: ACETAMINOPHEN 325 MG TABLET PO PRN (15:48)
[2018-05-26 16:42] VITALS: BP 105/49
[2018-05-26] MEDS: LATANOPROST OPHT DROP 2.5 ML BOTTLE EACHEYE SCH (20:08)
[2018-05-26] MEDS: TAMSULOSIN HCL 0.4 MG CAP.SR.24H PO SCH (20:08)
[2018-05-26] MEDS: ATORVASTATIN 10 MG TABLET PO SCH (20:08)
[2018-05-26 20:13] VITALS: BP 111/56
--- NOTE | 2018-05-26 21:57 | NUR ---
Received pt in bed, AAO x 4 watching television. No acute distress noted. Verbally responsive and able to make needs known. C/O pain 3/10 pain scale left hip but refusing pain medication at this time, states that "he is ok when he is laying down." BS checked, noted to be 94. No coverage provided per insulin sliding scale as ordered by MD. All due medications given as ordered, tolerated well. All safety measures and fall precautions maintained. Call light and all personal belongings within reach. Will continue to monitor.
[2018-05-27 05:59] VITALS: BP 105/46
--- NOTE | 2018-05-27 06:00 | NUR ---
Pt called requesting to have sugar checked. Explained that the earliest I can check his sugar is 0630. Pt began yelling and screaming at RN, stating that he wants his sugar checked now. Continued to educate patient regarding the fact that cannot check sugar early, especially since breakfast will not be served until 0730. Refused to listen, continued to yell at nurse. Safety maintained. Call light within reach.
--- NOTE | 2018-05-27 06:14 | NUR ---
Blood sugar checked, noted to be 156. No noted signs of hyperglycemia noted. No acute distress noted. Pt stated that he wants insulin right at this moment. Explained to patient that cannot give insulin since he does not have his breakfast tray in front of him and that it is important to have food in front of him when given his morning insulin. Called dietary and asked for early breakfast tray, but per dietary stated that they will try to bring it early. Verbalized this to patient, but continued to refuse stating that he "wants his insulin now with or without food!" Continued screaming at RN and HAND STEMMER despite multiple attempts at explaining to the patient the importance insulin and ensuring food is in front of him. Pt continued screaming at the HAND STEMMER & RN stating that he "will complain. This is not a hospital. Give me my insulin right now! I'm going to complain!" Multiple attempts made at explaining, but pt refused to listen. Safety maintained. Call light within reach. Will continue to monitor. Will endorse accordingly to oncoming shift.
[2018-05-27] MEDS: BLOOD SUGAR DIAGNOSTIC 1 EACH STRIP VI SCH ×4 (06:31→20:24)
[2018-05-27] MEDS: PANTOPRAZOLE SODIUM 40 MG TABLET.DR PO SCH ×2 (06:31→06:32)
[2018-05-27] MEDS: INSULIN REGULAR, HUMAN 300 UNIT/3 ML VIAL SQ PRN ×3 (07:50→16:20)
[2018-05-27] MEDS: GLIMEPIRIDE 2 MG TABLET PO SCH ×2 (07:52→11:47)
[2018-05-27] MEDS: METFORMIN HCL 500 MG TABLET PO SCH ×2 (07:52→11:47)
[2018-05-27] MEDS: CLOPIDOGREL 75 MG TABLET PO SCH (08:00)
[2018-05-27] MEDS: FUROSEMIDE 40 MG TABLET PO SCH (08:01)
[2018-05-27] MEDS: CHOLECALCIFEROL 1,000 UNIT TABLET PO SCH (08:01)
[2018-05-27] MEDS: SULFAMETH/TRIMETH 800/160 MG TABLET PO SCH ×2 (08:01→20:18)
[2018-05-27] MEDS: FERROUS SULFATE 325 MG TABEC PO SCH (08:01)
[2018-05-27] MEDS: SODIUM CHLORIDE 5% EACHEYE SCH ×4 (08:07→20:18)
[2018-05-27] MEDS: ENOXAPARIN SODIUM 40 MG/0.4 ML DISP.SYRIN SQ SCH (08:07)
[2018-05-27 08:31] VITALS: BP 140/50
[2018-05-27] MEDS: ACETAMINOPHEN 325 MG TABLET PO PRN ×2 (12:44→22:10)
[2018-05-27 16:19] VITALS: BP 103/49
--- NOTE | 2018-05-27 19:15 | NUR ---
Received pt. awake, calm, and cooperative. Asked nurse if she still remember him. Denies any pain/discomforts. Denies s/s of hypo/hyperglycemia. Safety measure and fall precaution maintained. Continue care as planned.
[2018-05-27 20:10] VITALS: BP 109/48
[2018-05-27] MEDS: LATANOPROST OPHT DROP 2.5 ML BOTTLE EACHEYE SCH (20:18)
[2018-05-27] MEDS: ATORVASTATIN 10 MG TABLET PO SCH (20:18)
[2018-05-27] MEDS: TAMSULOSIN HCL 0.4 MG CAP.SR.24H PO SCH (20:18)
--- NOTE | 2018-05-27 20:30 | NUR ---
HS snack provided, patient refused stating that he knows when to eat and not to. Encouraged to have even just a little so BS wont drop in the morning.
--- NOTE | 2018-05-27 20:35 | NUR ---
Seen by Dr. Garcia with no new order noted.
--- NOTE | 2018-05-28 02:33 | NUR ---
Patient called requesting to have his BS checked=69mg/dl. Offered snack and accepted it this time. Will monitor.
[2018-05-28 05:42] VITALS: BP 100/50
[2018-05-28] MEDS: PANTOPRAZOLE SODIUM 40 MG TABLET.DR PO SCH (06:36)
[2018-05-28] MEDS: BLOOD SUGAR DIAGNOSTIC 1 EACH STRIP VI SCH ×4 (06:40→20:54)
--- NOTE | 2018-05-28 07:23 | NUR ---
Received patient awake, alert and oriented, in bed on a semi-mccarthy's position, no SOB or distress. Denies any pain or discomforts at this time. Safety precautions initiated. call light and telephone within reach. Encouraged to use call light whenever assistance is needed. informed about hourly rounding. Will continue to monitor.
--- NOTE | 2018-05-28 08:00 | NUR ---
Patient's Blood sugar noted 152. Patient is supposed to get insulin per sliding scale coverage but pt refused the insulin and only took Amaryl and Metformin. Dr. Bairon Still informed and aware of the refusal. Will continue to monitor.
[2018-05-28] MEDS: METFORMIN HCL 500 MG TABLET PO SCH ×2 (08:10→15:06)
[2018-05-28] MEDS: GLIMEPIRIDE 2 MG TABLET PO SCH ×2 (08:10→15:06)
[2018-05-28] MEDS: INSULIN REGULAR, HUMAN 300 UNIT/3 ML VIAL SQ PRN ×2 (08:11→18:03)
[2018-05-28 08:35] VITALS: BP 117/54
[2018-05-28] MEDS: ENOXAPARIN SODIUM 40 MG/0.4 ML DISP.SYRIN SQ SCH (08:37)
[2018-05-28] MEDS: FERROUS SULFATE 325 MG TABEC PO SCH (08:38)
[2018-05-28] MEDS: FUROSEMIDE 40 MG TABLET PO SCH (08:38)
[2018-05-28] MEDS: SODIUM CHLORIDE 5% EACHEYE SCH ×4 (08:38→20:47)
[2018-05-28] MEDS: CHOLECALCIFEROL 1,000 UNIT TABLET PO SCH (08:39)
[2018-05-28] MEDS: SULFAMETH/TRIMETH 800/160 MG TABLET PO SCH ×2 (08:40→20:47)
[2018-05-28] MEDS: TRAMADOL HCL 50 MG TABLET PO PRN (08:40)
[2018-05-28] MEDS: CLOPIDOGREL 75 MG TABLET PO SCH (08:41)
--- NOTE | 2018-05-28 12:00 | NUR ---
Patient is scheduled for Accu check for lunch. Patient's blood sugar level noted: 171 mg/dL. Patient stated " i don't want to eat lunch now. i am going to eat later at 3pm. Do not give me the metformin, Amaryl or that insulin. Come back later and check my blood sugar before I eat lunch." Called Dr. Bairon Still and informed. aware.
--- NOTE | 2018-05-28 15:00 | NUR ---
blood sugar checked noted BS: 134 mg/dL. Patient ate lunch and took his Amaryl and Metformin. Dr. Bairon Still is aware.
[2018-05-28 16:26] VITALS: BP 101/49
--- NOTE | 2018-05-28 16:30 | NUR ---
Patient is due for another blood sugar check but patient refused to have his blood sugar checked at this time. Per patient come back at 1800 to check his blood sugar. Called dr. Bairon Still and notified. agreed
--- NOTE | 2018-05-28 18:00 | NUR ---
Blood sugar checked noted blood sugar 133 mg/dL. Patient refused to eat dinner since he just ate at [address]. Called Dr[address] Still and informed. Will continue to monitor
--- NOTE | 2018-05-28 18:08 | NUR ---
Nurse Notes: Patient alert and oriented x 4, no changes in LOC or mentation.No SOB or distress. Assessed and reassessed for pain, medicated with Tramadol x 1, stated relief. All due medications were given, tolerated well. Patient in non complaint with his insulin and scheduled blood sugar checks, Dr. Still is well informed. Safety precautions observed at all times. hourly rounding done, call light and telephone within reach at all times. call light answered promptly. Will continue to monitor. Will endorse accordingly to next shift for continuity of care.
[2018-05-28 19:50] VITALS: BP 116/78
[2018-05-28] MEDS: ATORVASTATIN 10 MG TABLET PO SCH (20:46)
[2018-05-28] MEDS: TAMSULOSIN HCL 0.4 MG CAP.SR.24H PO SCH (20:46)
[2018-05-28] MEDS: LATANOPROST OPHT DROP 2.5 ML BOTTLE EACHEYE SCH (20:48)
--- NOTE | 2018-05-28 22:32 | NUR ---
resting in bed at beginning of shift. VSS no acute distress noted. On fall precautions. call booker within reach. siderails up for safety. accucheck @ 2100 was 88. no coverage. HS snacks given. tolerated well. will monitor patient's blood sugar. tolerated po meds. voiding in urinal. Instruct patient to call whenever he feels his sugar is dropping. verbalized understanding. compliant with care. patient has an appointment with Dr Sullivan in am for follow-up. voiding well.
[2018-05-29 05:45] VITALS: BP 117/50
[2018-05-29] MEDS: PANTOPRAZOLE SODIUM 40 MG TABLET.DR PO SCH (06:35)
[2018-05-29] MEDS: BLOOD SUGAR DIAGNOSTIC 1 EACH STRIP VI SCH ×4 (06:39→21:05)
[2018-05-29 07:00] VITALS: BP 104/60
[2018-05-29] MEDS: METFORMIN HCL 500 MG TABLET PO SCH ×2 (08:15→12:18)
[2018-05-29] MEDS: CHOLECALCIFEROL 1,000 UNIT TABLET PO SCH (08:15)
[2018-05-29] MEDS: SODIUM CHLORIDE 5% EACHEYE SCH ×4 (08:15→20:58)
[2018-05-29] MEDS: GLIMEPIRIDE 2 MG TABLET PO SCH ×2 (08:15→12:18)
[2018-05-29] MEDS: SULFAMETH/TRIMETH 800/160 MG TABLET PO SCH ×2 (08:16→20:55)
[2018-05-29] MEDS: FERROUS SULFATE 325 MG TABEC PO SCH (08:16)
[2018-05-29] MEDS: CLOPIDOGREL 75 MG TABLET PO SCH (08:16)
[2018-05-29] MEDS: FUROSEMIDE 40 MG TABLET PO SCH (08:16)
[2018-05-29] MEDS: ENOXAPARIN SODIUM 40 MG/0.4 ML DISP.SYRIN SQ SCH (08:26)
[2018-05-29] MEDS: ACETAMINOPHEN 325 MG TABLET PO PRN ×2 (09:31→21:30)
[2018-05-29] MEDS: INSULIN REGULAR, HUMAN 300 UNIT/3 ML VIAL SQ PRN ×2 (12:27→17:53)
[2018-05-29] MEDS: MECLIZINE HCL 25 MG TABLET PO PRN (12:54)
--- NOTE | 2018-05-29 15:34 | NUR ---
Patient picked up by [facility] transferred via [facility] for follow up appointment with Dr. Sullivan (surgeon). Patient remains alert, not in any distress. He denies any pain or discomfort.
[2018-05-29 16:02] VITALS: BP 126/86
--- NOTE | 2018-05-29 17:30 | NUR ---
Patient back from appointment with Dr. Cheng. Patient remains alert, not in any form of acute distress. He denies any pain or discomfort at this time. Surgical alfredo removed, surgical incision noted with steri-strips open to air, clean and dry, no signs of infection. Ortho notes: PT, WBAT Left lower extremity and ff-up in months.
[2018-05-29 19:50] VITALS: BP 117/52
--- NOTE | 2018-05-29 20:19 | NUR ---
awake upon initial rounds. aaox4 no acute distress noted. needs attended. VSS no complaints presented during shift. will monitor patient's blood sugar. HS snacks at bedside. voiding freely in the urinal. left hip incision with steristrips RN ELIGIBILITY. kept comfortable. siderails up for safety.
[2018-05-29] MEDS: ATORVASTATIN 10 MG TABLET PO SCH (20:54)
[2018-05-29] MEDS: TAMSULOSIN HCL 0.4 MG CAP.SR.24H PO SCH (20:54)
[2018-05-29] MEDS: LATANOPROST OPHT DROP 2.5 ML BOTTLE EACHEYE SCH (20:59)
--- NOTE | 2018-05-30 01:30 | NUR ---
at 2100 accycheck it was 76. HS snack given.will monitor in am. complainrd of generalized pain earlier, tylenol given with relief.
[2018-05-30 06:01] VITALS: BP 104/58
[2018-05-30] MEDS: PANTOPRAZOLE SODIUM 40 MG TABLET.DR PO SCH (06:31)
--- NOTE | 2018-05-30 06:46 | NUR ---
slept well. no acute distress noted. voiding in urinal. accucheck @ 0630 was 62. pudding, bertin crackers and milk given. will repeat blood sugar in 20 minutes.
[2018-05-30] MEDS: BLOOD SUGAR DIAGNOSTIC 1 EACH STRIP VI SCH ×4 (06:52→21:04)
[2018-05-30 07:00] VITALS: BP 118/44
[2018-05-30] MEDS: FERROUS SULFATE 325 MG TABEC PO SCH (08:18)
[2018-05-30] MEDS: CLOPIDOGREL 75 MG TABLET PO SCH (08:18)
[2018-05-30] MEDS: FUROSEMIDE 40 MG TABLET PO SCH (08:18)
[2018-05-30] MEDS: METFORMIN HCL 500 MG TABLET PO SCH ×2 (08:18→11:51)
[2018-05-30] MEDS: CHOLECALCIFEROL 1,000 UNIT TABLET PO SCH (08:18)
[2018-05-30] MEDS: GLIMEPIRIDE 2 MG TABLET PO SCH ×2 (08:18→11:51)
[2018-05-30] MEDS: MECLIZINE HCL 25 MG TABLET PO PRN (08:19)
[2018-05-30] MEDS: SULFAMETH/TRIMETH 800/160 MG TABLET PO SCH ×2 (08:19→20:34)
[2018-05-30] MEDS: SODIUM CHLORIDE 5% EACHEYE SCH ×4 (08:19→20:34)
[2018-05-30] MEDS: ENOXAPARIN SODIUM 40 MG/0.4 ML DISP.SYRIN SQ SCH (08:20)
[2018-05-30] MEDS: INSULIN REGULAR, HUMAN 300 UNIT/3 ML VIAL SQ PRN ×3 (08:24→16:13)
[2018-05-30] MEDS: MAGNESIUM HYDROXIDE 30 ML LIQUID UDC PO PRN (09:16)
--- NOTE | 2018-05-30 09:36 | NUR ---
Received pt. on bed, comfortable in no distress. A/OX4 and able to make his needs known. Denies CP or SOB, on RA tolerating well with 96% SpO2. All due medications administered as ordered and tolerated well. LFA PIV patent and intact. LT. hip incision with steristrips and open to air. No s/sx of hypo/hyperglycemia, last BS: 68 mg/dl this AM, no coverage given. On PO ATB for UTI, no ASE noted. No s/sx of bleeding. All pt. needs attended and met promptly. Safety measures in place. Call light and all frequently used items within pt. reach.
[2018-05-30] MEDS: ACETAMINOPHEN 325 MG TABLET PO PRN (11:51)
[2018-05-30 16:00] VITALS: BP 120/43
--- NOTE | 2018-05-30 19:42 | NUR ---
End of shift note: No significant change during this shift. All due medications administered as ordered and tolerated well. No sign of acute distress or SOB was noted. Kept pt clean and dry throughout this shift. Safety measures maintained. All needs attended and met promptly. Bed in low position, brake on, side rails up x2 as an enabler. Call light and all frequently used items within pt. reach. Will endorse to next shift accordingly
[2018-05-30 20:17] VITALS: BP 113/49
[2018-05-30] MEDS: ATORVASTATIN 10 MG TABLET PO SCH (20:34)
[2018-05-30] MEDS: TAMSULOSIN HCL 0.4 MG CAP.SR.24H PO SCH (20:34)
[2018-05-30] MEDS: LATANOPROST OPHT DROP 2.5 ML BOTTLE EACHEYE SCH (20:34)
--- NOTE | 2018-05-31 00:57 | NUR ---
aaox4 compliants with meds. VSS no acute distress noted. left hip with steristrips [facility]. denies any pain nor any discomfort. Blood sugar checked @ 2100 it was 77. HS snacks given . Will monitor patient's blood sugar in am. Voiding well. siderails up for safety.
[2018-05-31 04:58] VITALS: BP 111/43
[2018-05-31] MEDS: PANTOPRAZOLE SODIUM 40 MG TABLET.DR PO SCH (06:31)
--- NOTE | 2018-05-31 06:35 | NUR ---
Blood sugar checked @ 0630 it was 184.
[2018-05-31] MEDS: INSULIN REGULAR, HUMAN 300 UNIT/3 ML VIAL SQ PRN (07:45)
[2018-05-31] MEDS: BLOOD SUGAR DIAGNOSTIC 1 EACH STRIP VI SCH ×4 (07:47→20:33)
[2018-05-31 08:00] VITALS: BP 111/46
[2018-05-31] MEDS: METFORMIN HCL 500 MG TABLET PO SCH ×2 (08:17→12:16)
[2018-05-31] MEDS: GLIMEPIRIDE 2 MG TABLET PO SCH ×2 (08:17→12:17)
[2018-05-31] MEDS: FERROUS SULFATE 325 MG TABEC PO SCH (08:21)
[2018-05-31] MEDS: CHOLECALCIFEROL 1,000 UNIT TABLET PO SCH (08:21)
[2018-05-31] MEDS: SODIUM CHLORIDE 5% EACHEYE SCH ×4 (08:21→20:33)
[2018-05-31] MEDS: FUROSEMIDE 40 MG TABLET PO SCH (08:21)
[2018-05-31] MEDS: CLOPIDOGREL 75 MG TABLET PO SCH (08:22)
[2018-05-31] MEDS: SULFAMETH/TRIMETH 800/160 MG TABLET PO SCH ×2 (08:22→20:33)
[2018-05-31] MEDS: ENOXAPARIN SODIUM 40 MG/0.4 ML DISP.SYRIN SQ SCH (08:26)
--- NOTE | 2018-05-31 13:11 | NUR ---
INTERDISCIPLINARY TEAM CONFERENCE
[2018-05-31] MEDS: ACETAMINOPHEN 325 MG TABLET PO PRN (13:52)
[2018-05-31 16:00] VITALS: BP 111/44
--- NOTE | 2018-05-31 19:45 | NUR ---
Received patient resting in bed, easily to arouse. No signs of acute distress noted. No complaints of pain or SOB. Safety measures initiated. Call light within reach, bed is low and locked. Will continue to monitor.
[2018-05-31] MEDS: TAMSULOSIN HCL 0.4 MG CAP.SR.24H PO SCH (20:33)
[2018-05-31] MEDS: LATANOPROST OPHT DROP 2.5 ML BOTTLE EACHEYE SCH (20:33)
[2018-05-31] MEDS: ATORVASTATIN 10 MG TABLET PO SCH (20:33)
--- NOTE | 2018-05-31 20:35 | NUR ---
Blood sugar check - 106
[2018-05-31 21:03] VITALS: BP 114/50
[2018-06-01 06:19] VITALS: BP 117/69
[2018-06-01 06:42] LABS: BASOPHILS % (AUTO) 0.6 % (0.0-2.0); EOSINOPHILS # (AUTO) 0.3 K/uL (0.0-0.7); EOSINOPHILS % (AUTO) 6.1 % (0.0-7.0); HEMATOCRIT 29.1 % (36.7-47.1); HEMOGLOBIN 9.9 g/dL (12.5-16.3); LYMPHOCYTES # (AUTO) 1.7 K/uL (20.0-40.0); LYMPHOCYTES % (AUTO) 31.7 % (20.5-51.5); MEAN CORPUSCULAR HEMOGLOBIN 32.5 uug (23.8-33.4); MEAN CORPUSCULAR HGB CONC 34 g/dL (32.5-36.3); MEAN CORPUSCULAR VOLUME 95.8 fL (73.0-96.2); MONOCYTES # (AUTO) 0.5 K/uL (2.0-10.0); MONOCYTES % (AUTO) 10.1 % (0.0-11.0); NEUTROPHILS # (AUTO) 2.7 K/uL (1.8-8.9); NEUTROPHILS % (AUTO) 51.5 % (38.5-71.5); PLATELET COUNT (AUTO) 305 K/uL (152-348); RED BLOOD CELL COUNT(AUTO) 3.04 MIL/uL (4.06-5.63); WHITE BLOOD COUNT (AUTO) 5.3 K/uL (3.6-10.2)
[2018-06-01] MEDS: PANTOPRAZOLE SODIUM 40 MG TABLET.DR PO SCH (06:44)
--- NOTE | 2018-06-01 06:46 | NUR ---
Patient slept well throughout shift. No signs of acute distress. Patient called earlier in the morning for bertin correia, asked if patient was feeling well and if he wanted me to check his blood sugar and he said no, to check it later in the morning. No complaints of pain or SOB. Medications given as ordered except patient refused Protonix, saying this was the first time he has heard of the medication. Explained what it was for and patient said he didn't want to take it because he hasn't heard of it since being here. Safety measures given. Blood sugar was 58 this morning. Encouraged to eat snacks and drink apple juice. Will check again at 0700.
[2018-06-01 06:58] LABS: ALANINE AMINOTRANSFERASE 34 U/L (16-63); ALKALINE PHOSPHATASE 52 U/L (50-136); ASPARTATE AMINOTRANSFERASE 26 U/L (15-37); BILIRUBIN,TOTAL 0.5 mg/dL (0.2-1.0); CARBON DIOXIDE 32 mmol/L (21-32); CHLORIDE 100 mmol/L (98-107); CREATININE 1.8 mg/dL (0.6-1.3); GLUCOSE 68 mg/dL (74-106); MAGNESIUM 2.1 mg/dL (1.8-2.4); PHOSPHOROUS 4.5 mg/dL (2.5-4.9); POTASSIUM 4.5 mmol/L (3.5-5.1); TOTAL PROTEIN, SERUM 7.1 g/dL (6.4-8.2); UREA NITROGEN, BLOOD 30 mg/dL (7-18)
[2018-06-01] MEDS: BLOOD SUGAR DIAGNOSTIC 1 EACH STRIP VI SCH ×4 (07:14→20:05)
--- NOTE | 2018-06-01 07:20 | NUR ---
Rechecked blood sugar and is now 102.
[2018-06-01] MEDS ORDERED: METFORMIN HCL 500 MG TABLET PO SCH (08:00)
[2018-06-01 08:14] VITALS: BP 125/78
[2018-06-01] MEDS: TRAMADOL HCL 50 MG TABLET PO PRN (08:46)
[2018-06-01] MEDS: CHOLECALCIFEROL 1,000 UNIT TABLET PO SCH (08:46)
[2018-06-01] MEDS: CLOPIDOGREL 75 MG TABLET PO SCH (08:46)
[2018-06-01] MEDS: FERROUS SULFATE 325 MG TABEC PO SCH (08:46)
[2018-06-01] MEDS: GLIMEPIRIDE 2 MG TABLET PO SCH ×2 (08:46→11:36)
[2018-06-01] MEDS: FUROSEMIDE 40 MG TABLET PO SCH (08:47)
[2018-06-01] MEDS: ENOXAPARIN SODIUM 30 MG/0.3 ML DISP.SYRIN SUBCUT SCH (08:53)
[2018-06-01] MEDS: SULFAMETH/TRIMETH 800/160 MG TABLET PO SCH ×2 (08:55→20:04)
[2018-06-01] MEDS: SODIUM CHLORIDE 5% EACHEYE SCH ×4 (09:02→20:04)
[2018-06-01] MEDS: INSULIN REGULAR, HUMAN 300 UNIT/3 ML VIAL SQ PRN ×2 (12:03→15:47)
[2018-06-01 17:11] VITALS: BP 104/51
--- NOTE | 2018-06-01 19:25 | NUR ---
SBAR RECEIVED FROM DAY SHIFT NURSE. PATIENT ALERT AND ORIENTED X 4. NO C/O OF PAIN UPON ASSESSMENT. PATIENT APPEARS TO BE ANXIOUS ABOUT BLOOD SUGAR LEVELS. WILL TAKE BS AT 1999. CALL LIGHT AND FREQUENTLY USED ITEMS WITHIN REACH. WILL CONTINUE TO MONITOR.
[2018-06-01] MEDS: ATORVASTATIN 10 MG TABLET PO SCH (20:04)
[2018-06-01] MEDS: TAMSULOSIN HCL 0.4 MG CAP.SR.24H PO SCH (20:04)
[2018-06-01] MEDS: LATANOPROST OPHT DROP 2.5 ML BOTTLE EACHEYE SCH (20:05)
[2018-06-01 20:06] VITALS: BP 113/52
[2018-06-02 04:43] VITALS: BP 105/50
[2018-06-02] MEDS: PANTOPRAZOLE SODIUM 40 MG TABLET.DR PO SCH (06:32)
[2018-06-02] MEDS: BLOOD SUGAR DIAGNOSTIC 1 EACH STRIP VI SCH ×4 (06:32→20:28)
[2018-06-02 06:48] LABS: BASOPHILS % (AUTO) 0.5 % (0.0-2.0); EOSINOPHILS # (AUTO) 0.3 K/uL (0.0-0.7); HEMATOCRIT 29.7 % (36.7-47.1); LYMPHOCYTES # (AUTO) 1.6 K/uL (20.0-40.0); LYMPHOCYTES % (AUTO) 31.5 % (20.5-51.5); MEAN CORPUSCULAR HEMOGLOBIN 32.6 uug (23.8-33.4); MEAN CORPUSCULAR HGB CONC 34 g/dL (32.5-36.3); MEAN CORPUSCULAR VOLUME 96.5 fL (73.0-96.2); MONOCYTES # (AUTO) 0.5 K/uL (2.0-10.0); MONOCYTES % (AUTO) 9.3 % (0.0-11.0); NEUTROPHILS # (AUTO) 2.6 K/uL (1.8-8.9); NEUTROPHILS % (AUTO) 51.7 % (38.5-71.5); PLATELET COUNT (AUTO) 295 K/uL (152-348); RED BLOOD CELL COUNT(AUTO) 3.08 MIL/uL (4.06-5.63)
--- NOTE | 2018-06-02 06:53 | NUR ---
PATIENT SLEPT WELL THROUGHOUT THE NIGHT. ALL DUE MEDICATIONS GIVEN-TOLERATED WELL. PUDDING AND CRACKERS GIVEN FOR SNACKS. SIDE RAILS UP BILATERALLY FOR SAFETY. CALL LIGHT AND FREQUENTLY USED ITEMS WITHIN REACH. WILL ENDORSE TO ONCOMING SHIFT ACCORDINGLY.
[2018-06-02 07:02] LABS: ALANINE AMINOTRANSFERASE 35 U/L (16-63); ALKALINE PHOSPHATASE 54 U/L (50-136); ASPARTATE AMINOTRANSFERASE 27 U/L (15-37); BILIRUBIN,TOTAL 0.5 mg/dL (0.2-1.0); CARBON DIOXIDE 30 mmol/L (21-32); CHLORIDE 98 mmol/L (98-107); CREATINE KINASE, TOTAL 48 U/L (39-308); CREATININE 1.7 mg/dL (0.6-1.3); GLUCOSE 126 mg/dL (74-106); PHOSPHOROUS 4.5 mg/dL (2.5-4.9); POTASSIUM 4.7 mmol/L (3.5-5.1); TOTAL PROTEIN, SERUM 7.2 g/dL (6.4-8.2); UREA NITROGEN, BLOOD 31 mg/dL (7-18)
[2018-06-02 07:50] VITALS: BP 120/45
[2018-06-02] MEDS: GLIMEPIRIDE 2 MG TABLET PO SCH ×2 (08:39→12:41)
[2018-06-02] MEDS: CHOLECALCIFEROL 1,000 UNIT TABLET PO SCH (08:41)
[2018-06-02] MEDS: CLOPIDOGREL 75 MG TABLET PO SCH (08:42)
[2018-06-02] MEDS: TRAMADOL HCL 50 MG TABLET PO PRN (08:42)
[2018-06-02] MEDS: FERROUS SULFATE 325 MG TABEC PO SCH (08:43)
[2018-06-02] MEDS: SODIUM CHLORIDE 5% EACHEYE SCH ×4 (08:43→20:27)
[2018-06-02] MEDS: FUROSEMIDE 40 MG TABLET PO SCH (08:43)
[2018-06-02] MEDS: ENOXAPARIN SODIUM 30 MG/0.3 ML DISP.SYRIN SUBCUT SCH (08:47)
[2018-06-02] MEDS: INSULIN REGULAR, HUMAN 300 UNIT/3 ML VIAL SQ PRN ×2 (12:43→20:34)
[2018-06-02 15:20] VITALS: BP 120/39
--- NOTE | 2018-06-02 19:58 | NUR ---
PATIENT ALERT AND ORIENTED X 4. NO C/O OF PAIN, SOB OR DISTRESS UPON ASSESSMENT. ASSISTED WITH EVENING ADL'S. CALL LIGHT AND FREQUENTLY USED ITEMS WITHIN REACH. WILL CONTINUE TO MONITOR.
[2018-06-02] MEDS: TAMSULOSIN HCL 0.4 MG CAP.SR.24H PO SCH (20:27)
[2018-06-02] MEDS: ATORVASTATIN 10 MG TABLET PO SCH (20:27)
[2018-06-02] MEDS: LATANOPROST OPHT DROP 2.5 ML BOTTLE EACHEYE SCH (20:27)
[2018-06-02 20:33] VITALS: BP 117/54
[2018-06-03 05:21] VITALS: BP 109/45
[2018-06-03] MEDS: PANTOPRAZOLE SODIUM 40 MG TABLET.DR PO SCH (06:35)
[2018-06-03] MEDS: BLOOD SUGAR DIAGNOSTIC 1 EACH STRIP VI SCH ×4 (06:35→20:20)
--- NOTE | 2018-06-03 06:54 | NUR ---
PATIENT SLEPT INTERMITTENTLY DURING THE SENIOR TECHNICAL MANAGER. ALL DUE MEDICATIONS GIVEN-TOLERATED WELL. BLOOD SUGAR CHECK 0000 AND FOR 0730. PATIENT ANXIOUS ABOUT BLOOD SUGAR LEVELS. SIDE RAILS UP BILATERALLY FOR SAFETY. CALL LIGHT AND FREQUENTLY USED ITEMS WITHIN REACH. WILL ENDORSE TO ONCOMING SHIFT ACCORDINGLY.
[2018-06-03 07:00] VITALS: BP 115/46
[2018-06-03] MEDS: INSULIN REGULAR, HUMAN 300 UNIT/3 ML VIAL SQ PRN ×4 (07:58→20:25)
[2018-06-03] MEDS: ENOXAPARIN SODIUM 30 MG/0.3 ML DISP.SYRIN SUBCUT SCH (08:03)
[2018-06-03] MEDS: CHOLECALCIFEROL 1,000 UNIT TABLET PO SCH (08:03)
[2018-06-03] MEDS: ACETAMINOPHEN 325 MG TABLET PO PRN (08:03)
[2018-06-03] MEDS: GLIMEPIRIDE 2 MG TABLET PO SCH ×2 (08:04→12:08)
[2018-06-03] MEDS: CLOPIDOGREL 75 MG TABLET PO SCH (08:04)
[2018-06-03] MEDS: FUROSEMIDE 40 MG TABLET PO SCH (08:04)
[2018-06-03] MEDS: FERROUS SULFATE 325 MG TABEC PO SCH (08:04)
[2018-06-03] MEDS: SODIUM CHLORIDE 5% EACHEYE SCH ×4 (08:04→20:19)
[2018-06-03] MEDS: MAGNESIUM HYDROXIDE 30 ML LIQUID UDC PO PRN (13:11)
[2018-06-03] MEDS: LISINOPRIL 5 MG TABLET PO SCH (14:00)
[2018-06-03] MEDS ORDERED: IV NORMAL SALINE 500 ML BAG IV ONE (15:00)
[2018-06-03 16:19] VITALS: BP 105/52
--- NOTE | 2018-06-03 16:23 | NUR ---
Informed Dr Still of BP orthostatics, patient complained of dizziness on standing up. Dr ordered Bolus of 500 NS and if BP still low to give NS 1L at 75 cc/hr. Dr said to have patient stay for one more day to complete hydration.
[2018-06-03 16:28] VITALS: BP_SYST 115; BP_SYST 93; BP_SYST 98; BP_DIAS 40; BP_DIAS 46; BP_DIAS 47
[2018-06-03] MEDS: IV NS 1000 ML 1,000 ML IV SCH (17:14)
[2018-06-03] MEDS ORDERED: BISACODYL 10 MG SUPP.RECT RC PRN ×2 (19:15→19:45)
[2018-06-03] MEDS: TAMSULOSIN HCL 0.4 MG CAP.SR.24H PO SCH (20:19)
[2018-06-03] MEDS: LATANOPROST OPHT DROP 2.5 ML BOTTLE EACHEYE SCH (20:19)
[2018-06-03] MEDS: ATORVASTATIN 10 MG TABLET PO SCH (20:19)
[2018-06-03 21:55] VITALS: BP 115/50
[2018-06-04 04:46] VITALS: BP 106/46
[2018-06-04] MEDS: IV NS 1000 ML 1,000 ML IV SCH (06:15)
[2018-06-04] MEDS: BLOOD SUGAR DIAGNOSTIC 1 EACH STRIP VI SCH (06:54)
[2018-06-04] MEDS: PANTOPRAZOLE SODIUM 40 MG TABLET.DR PO SCH (06:54)
[2018-06-04] MEDS: INSULIN REGULAR, HUMAN 300 UNIT/3 ML VIAL SQ PRN (07:54)
[2018-06-04 08:10] VITALS: BP 107/46
[2018-06-04] MEDS: CHOLECALCIFEROL 1,000 UNIT TABLET PO SCH (08:36)
[2018-06-04] MEDS: CLOPIDOGREL 75 MG TABLET PO SCH (08:36)
[2018-06-04] MEDS: FERROUS SULFATE 325 MG TABEC PO SCH (08:36)
[2018-06-04 08:37] VITALS: BP 107/46
[2018-06-04] MEDS: LISINOPRIL 5 MG TABLET PO SCH (08:37)
[2018-06-04] MEDS: ENOXAPARIN SODIUM 30 MG/0.3 ML DISP.SYRIN SUBCUT SCH (08:46)
[2018-06-04 08:47] LABS: BASOPHILS % (AUTO) 0.2 % (0.0-2.0); EOSINOPHILS # (AUTO) 0.2 K/uL (0.0-0.7); EOSINOPHILS % (AUTO) 3.7 % (0.0-7.0); HEMATOCRIT 29.5 % (36.7-47.1); LYMPHOCYTES # (AUTO) 1.5 K/uL (20.0-40.0); LYMPHOCYTES % (AUTO) 29.6 % (20.5-51.5); MEAN CORPUSCULAR HEMOGLOBIN 32.6 uug (23.8-33.4); MEAN CORPUSCULAR HGB CONC 34 g/dL (32.5-36.3); MEAN CORPUSCULAR VOLUME 96.2 fL (73.0-96.2); MONOCYTES # (AUTO) 0.5 K/uL (2.0-10.0); MONOCYTES % (AUTO) 9.4 % (0.0-11.0); NEUTROPHILS # (AUTO) 2.9 K/uL (1.8-8.9); NEUTROPHILS % (AUTO) 57.1 % (38.5-71.5); PLATELET COUNT (AUTO) 266 K/uL (152-348); RED BLOOD CELL COUNT(AUTO) 3.07 MIL/uL (4.06-5.63); WHITE BLOOD COUNT (AUTO) 5.1 K/uL (3.6-10.2)
[2018-06-04 08:52] LABS: ALANINE AMINOTRANSFERASE 39 U/L (16-63); ALKALINE PHOSPHATASE 57 U/L (50-136); ASPARTATE AMINOTRANSFERASE 27 U/L (15-37); BILIRUBIN,TOTAL 0.8 mg/dL (0.2-1.0); CARBON DIOXIDE 30 mmol/L (21-32); CHLORIDE 99 mmol/L (98-107); CREATININE 1.4 mg/dL (0.6-1.3); GLUCOSE 193 mg/dL (74-106); MAGNESIUM 2.1 mg/dL (1.8-2.4); PHOSPHOROUS 2.8 mg/dL (2.5-4.9); POTASSIUM 4.3 mmol/L (3.5-5.1); TOTAL PROTEIN, SERUM 7.1 g/dL (6.4-8.2); UREA NITROGEN, BLOOD 30 mg/dL (7-18)
[2018-06-04] MEDS: SODIUM CHLORIDE 5% EACHEYE SCH (08:55)
--- NOTE | 2018-06-04 11:53 | NUR ---
Patient discharge to home around 11am with SonJosé Luis via private car in stable condition. CD, lab and x-ray results given. FF UP with primary doctor. Fax prescription to [facility], prescription and medical instruction given to patient, verbalize understanding. not in distress.
== END 2018-06-04 11:00 | disposition home health service (06) | DRG 559 ==
PROVIDERS: ADMIT Physical Medicine & Rehabilitation Pain Medicine; ATTEND Physical Medicine & Rehabilitation Pain Medicine
PROC: 30233N1 Transfusion of Nonautologous Red Blood Cells into Peripheral Vein, Percutaneous Approach (ICD-10-PCS; principal; 2018-05-23)
DX: Z47.1 Aftercare following joint replacement surgery (principal); E43 Unspecified severe protein-calorie malnutrition; N39.0 Urinary tract infection, site not specified; D62 Acute posthemorrhagic anemia; I50.42 Chronic combined systolic (congestive) and diastolic (congestive) heart failure; N17.9 Acute kidney failure, unspecified; I11.0 Hypertensive heart disease with heart failure; Z96.642 Presence of left artificial hip joint; E78.5 Hyperlipidemia, unspecified; I25.10 Atherosclerotic heart disease of native coronary artery without angina pectoris; B96.1 Klebsiella pneumoniae [K. pneumoniae] as the cause of diseases classified elsewhere; E11.649 Type 2 diabetes mellitus with hypoglycemia without coma; R19.5 Other fecal abnormalities; R26.9 Unspecified abnormalities of gait and mobility; R42 Dizziness and giddiness; Z95.0 Presence of cardiac pacemaker; E83.42 Hypomagnesemia; E87.6 Hypokalemia; H40.9 Unspecified glaucoma; K21.9 Gastro-esophageal reflux disease without esophagitis; I70.0 Atherosclerosis of aorta; N40.0 Benign prostatic hyperplasia without lower urinary tract symptoms; L80 Vitiligo; Z95.1 Presence of aortocoronary bypass graft; M19.90 Unspecified osteoarthritis, unspecified site; Z91.81 History of falling; Z88.6 Allergy status to analgesic agent; Z88.1 Allergy status to other antibiotic agents; R53.1 Weakness
CPT/HCPCS: 36415; 71045; 73502; 76770; 82378; 82652; 83550; 83735; 84100; 84153; 84443; 84550; 85025; 86850; 86900; 86901; 86920; 87077; 87086; 92523; 92526; 92610; 97110; 97112; 97116; 97165; 97530; 97535; A4663; J1650; J1815; J3490; J7030; J7040; J8597; P9016-BL; P9021